=== PATIENT | male | born 1955 | race Hispanic/Latino ===

== ENCOUNTER → 2022-04-05 | Outpatient (CLI) | payer OTHER ==
[2022-04-05 16:58] LABS: ALBUMIN 3.8 g/dL (3.5-5.0); BILIRUBIN,DIRECT 0.1 mg/dL (0.0-0.3); CREATININE 1.4 mg/dL (0.5-1.5); TOTAL PROTEIN, SERUM 8.1 g/dL (6.0-8.3)
== END | disposition home or self-care (01) ==
LOC: RAH 15:24
PROVIDERS: ATTEND Internal Medicine Gastroenterology
DX: R93.5 Abnormal findings on diagnostic imaging of other abdominal regions, including retroperitoneum (principal); R93.3 Abnormal findings on diagnostic imaging of other parts of digestive tract
CPT/HCPCS: 36415; 80076; 82565; 84520; 86316

== ENCOUNTER → 2022-04-19 | Outpatient (CLI) | payer OTHER ==
[~2022-04-19] MED LIST: GADOTERATE MEGLUMINE 5 MMOL/10 ML VIAL IV ONE
== END | disposition home or self-care (01) ==
LOC: RAH 07:27 → EDUNIT# 08:00
PROVIDERS: ATTEND Internal Medicine Gastroenterology
DX: K80.20 Calculus of gallbladder without cholecystitis without obstruction (principal); R93.3 Abnormal findings on diagnostic imaging of other parts of digestive tract
CPT/HCPCS: 74183; A9575

== ENCOUNTER → 2023-03-27 | Outpatient (CLI) | payer OTHER | END | disposition home or self-care (01) | LOC: OIH 08:05 | PROVIDERS: ATTEND Family Medicine | DX: Z13.6 Encounter for screening for cardiovascular disorders (principal) | CPT/HCPCS: 75571 ==

== ENCOUNTER → 2023-04-05 | Outpatient (CLI) | payer OTHER ==
[~2023-04-05] MED LIST changes: +GADOTERATE MEGLUMINE 10 MMOL/20 ML VIAL IV ONE; -GADOTERATE MEGLUMINE 5 MMOL/10 ML VIAL IV ONE
== END | disposition home or self-care (01) ==
LOC: RAH 08:39
PROVIDERS: ATTEND Internal Medicine Gastroenterology
DX: K86.2 Cyst of pancreas (principal); R93.3 Abnormal findings on diagnostic imaging of other parts of digestive tract
CPT/HCPCS: 74183; A9575; S8037

== ENCOUNTER → 2024-09-21 | Outpatient (CLI) | payer OTHER ==
[2024-09-21 10:21] LABS: IMMATURE GRANULOCYTE ABSOLUTE 0.05 K/uL (0-1); NUCLEATED RED BLOOD CELLS 0.0 % (0.0-0.19); PLATELET COUNT (AUTO) 249 K/uL (130-400); RED BLOOD CELL COUNT(AUTO) 5.57 MIL/uL (4.50-6.20); RED CELL DISTRIBUTION WIDTH 13.6 % (11.0-15.5); WHITE BLOOD COUNT (AUTO) 9.6 K/uL (4.8-10.8)
[2024-09-21 10:37] LABS: ASPARTATE AMINOTRANSFERASE 23.0 U/L (10-37); CREATININE 1.3 mg/dL (0.5-1.3); GLOMERULAR FILTR. RATE CALC 59.0 mL/min (>90); GLUCOSE,RANDOM 143.0 mg/dL (70-105); SODIUM SERUM 138.0 mmol/L (136-145); TOTAL PROTEIN, SERUM 7.5 g/dL (6.0-8.3); UREA NITROGEN, BLOOD 31.0 mg/dL (7-18)
== END | disposition home or self-care (01) ==
LOC: LAB 09:04
PROVIDERS: ATTEND Internal Medicine Gastroenterology
DX: D13.6 Benign neoplasm of pancreas (principal)
CPT/HCPCS: 36415; 80053; 82150; 83690; 85025; 86316

== ENCOUNTER → 2024-09-24 | Outpatient (CLI) | payer OTHER ==
--- NOTE | 2024-09-26 11:30 | HMCIMG ---
EXAM: MR Abdomen with and without Intravenous Contrast. CLINICAL HISTORY: Benign neoplasm of the pancreas. TECHNIQUE: Multisequence, multiplanar magnetic resonance images of the abdomen. CONTRAST: 20 cc Clariscan. COMPARISON: [facility]. 04/05/2023. FINDINGS: ABDOMEN: No pleural effusion. There is a nonenhancing multicystic lobulated and septated fluid intensity lesion in the head of the pancreas measuring 3.8 x 2.8 x 2.9 cm. There is no focal abnormality appreciated within the liver, spleen, adrenals, or kidneys. There is no obvious bowel wall thickening. No abdominal aortic aneurysm. No lymphadenopathy. No ascites. There is no acute osseous abnormality. 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 Stable since the prior MRI. /[place]
== END | disposition home or self-care (01) ==
LOC: RAH 08:00
PROVIDERS: ATTEND Internal Medicine Gastroenterology
DX: D13.6 Benign neoplasm of pancreas (principal)
CPT/HCPCS: 74183; A9575